=== PATIENT | male | born 1970 | race Two or more races ===

== ENCOUNTER 2025-08-16 18:51 | Inpatient (IN) | payer SELFPAY ==
[2025-08-15 21:47] VITALS: BP 148/51; TEMP 97.7; O2SAT 98
[~2025-08-16] VITALS: Ht 172.7 cm; Wt 84.4 kg
[2025-08-16 19:34] LABS: PLATELET COUNT (AUTO) 197 K/uL (150-450); RED BLOOD CELL COUNT(AUTO) 5.67 MIL/uL (4.5-6.0); RED CELL DISTRIBUTION WIDTH 13.1 % (11.5-15.0); WHITE BLOOD COUNT (AUTO) 7.5 K/uL (4.3-11.0)
[2025-08-16 19:42] LABS: CALCIUM, SERUM 8.9 mg/dL (8.5-10.1); CREATININE 1.3 mg/dL (0.6-1.3); SODIUM SERUM 136 mmol/L (136-145); UREA NITROGEN, BLOOD 20 mg/dL (7-18)
[2025-08-16 19:55] LABS: ASPARTATE AMINOTRANSFERASE 19 U/L (15-37); NT-PRO BNP 36 pg/mL (0-125); TOTAL PROTEIN, SERUM 8.1 g/dL (6.4-8.2)
[2025-08-16] MEDS ORDERED: ASPIRIN 325 MG TABLET ONE (21:03)
[2025-08-16] MEDS: ASPIRIN 325 MG TABLET PO ONE (21:06)
[2025-08-16] MEDS ORDERED: METO25TA4 PO (21:33)
[2025-08-16] MEDS ORDERED: DAPA10TA PO (21:33)
[2025-08-16] MEDS ORDERED: AMLO1TAB12 PO (21:33)
[2025-08-16 22:00] VITALS: BP 148/91; TEMP 97.7; O2SAT 98
[2025-08-16] MEDS ORDERED: hydrALAZINE HCL IV 20 MG VIAL IV PRN (22:00)
[2025-08-16] MEDS ORDERED: HOME MED MISCELLANEOUS XX SCH (22:00)
[2025-08-16] MEDS: SIMVASTATIN 20 MG TABLET PO SCH (23:06)
[2025-08-16] MEDS: ENOXAPARIN SODIUM 40 MG/0.4 ML DISP.SYRIN SQ SCH (23:07)
[2025-08-17] VITALS: BP 110/82; TEMP 97.3; O2SAT 98
[2025-08-17 04:00] VITALS: BP 106/79; TEMP 97.9; O2SAT 99
[2025-08-17 08:00] VITALS: BP 121/91; TEMP 97.9; O2SAT 98
[2025-08-17] MEDS ORDERED: NEBI5TAB8 PO (08:03)
[2025-08-17 08:13] LABS: PLATELET COUNT (AUTO) 210 K/uL (150-450); RED BLOOD CELL COUNT(AUTO) 5.47 MIL/uL (4.5-6.0); RED CELL DISTRIBUTION WIDTH 13.1 % (11.5-15.0); WHITE BLOOD COUNT (AUTO) 6.1 K/uL (4.3-11.0)
[2025-08-17] MEDS: ASPIRIN 81 MG TAB.CHEW PO SCH (08:26)
[2025-08-17] MEDS: PANTOPRAZOLE 40 MG TABLET.DR PO SCH (08:26)
[2025-08-17] MEDS: DAPAGLIFLOZIN PROPANEDIOL 10 MG TABLET PO SCH (08:27)
[2025-08-17] MEDS: VALSARTAN 80 MG TABLET PO SCH (08:27)
[2025-08-17] MEDS: AMLODIPINE BESYLATE 5 MG TABLET PO SCH (08:27)
[2025-08-17 08:28] VITALS: BP 121/91
[2025-08-17] MEDS: METOPROLOL SUCCINATE 25 MG TAB.SR.24H PO SCH (08:28)
[2025-08-17 08:52] LABS: CALCIUM, SERUM 9.0 mg/dL (8.5-10.1); CREATININE 1.5 mg/dL (0.6-1.3); SODIUM SERUM 140.0 mmol/L (136-145); UREA NITROGEN, BLOOD 21.0 mg/dL (7-18)
[2025-08-17 08:58] LABS: LDL 156.0 mg/dL (0-99)
[2025-08-17] MEDS ORDERED: IV NS 0.9% 1,000 ML IV PRN (09:00)
[2025-08-17] MEDS ORDERED: IOHEXOL-350 100 ML VIAL IV ONE (11:09)
[2025-08-17] MEDS ORDERED: IV NS 0.9% 250 ML IV ONE (11:09)
[2025-08-17] MEDS ORDERED: CT SWABBABLE VALVE TRANS SET 1 EA INFUS.SET MC ONE (11:09)
[2025-08-17] MEDS: CLOPIDOGREL BISULFATE 75 MG TABLET PO SCH (11:34)
[2025-08-17 13:39] LABS: CREATINE KINASE, TOTAL 73.0 U/L (39-308); LDL 159.0 mg/dL (0-99)
[2025-08-17] MEDS ORDERED: ASPI-1169 PO (14:04)
[2025-08-17] MEDS ORDERED: SIMV-46 PO (14:04)
[2025-08-17] MEDS ORDERED: CLOP75TA15 PO (14:04)
== END 2025-08-17 16:45 | disposition home or self-care (01) | DRG 69 ==
LOC: ER 19:06 → TELE 20:35
PROVIDERS: ADMIT Nurse Practitioner Acute Care; ATTEND Nurse Practitioner Acute Care
DX: G45.9 Transient cerebral ischemic attack, unspecified (principal); I12.9 Hypertensive chronic kidney disease with stage 1 through stage 4 chronic kidney disease, or unspecified chronic kidney disease; Z79.02 Long term (current) use of antithrombotics/antiplatelets; N18.9 Chronic kidney disease, unspecified; R20.2 Paresthesia of skin; R51.9 Headache, unspecified; R53.1 Weakness; R79.89 Other specified abnormal findings of blood chemistry; Z79.82 Long term (current) use of aspirin; Z79.899 Other long term (current) drug therapy; Z79.84 Long term (current) use of oral hypoglycemic drugs
CPT/HCPCS: 36415; 70450-TC; 70496-TC; 70498-TC; 70551-TC; 71045-TC; 80048-TC; 80061-TC; 80076-TC; 82550-TC; 82607-TC; 82962-TC; 83880; 83921; 84443-TC; 84484-TC; 85025-TC; 92526; 92611; 93307-TC; 97110-TC; 97112-TC; 97116-TC; 97530-TC; 97535-TC; G0378; J1650; J7050; Q9967